=== PATIENT | male | born 2000 | race Caucasian/White ===

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

== ENCOUNTER 2024-12-12 13:12 | Emergency (ER) | payer OTHER, SELFPAY ==
--- NOTE | 2024-12-12 13:20 | ED_ITS ---
HPI - Head Injury General Chief complaint: Wound/Laceration Stated complaint: wc - head injury Time Seen by Provider: 12/12/24 13:35 Source: patient Mode of arrival: ambulatory Limitations: no limitations History of Present Illness HPI Narrative: Titi is a 24-year-old male patient presenting to the clinic today with complaints of head laceration. He reports that he was mowing the lawn and a tree limb hit him in the top of the head. Has a 2 cm laceration with bleeding controlled to the right parietal lobe. Denies loss of consciousness or any neck pain. Last Tetanus shot is unknown. Related Data Home Medications ?Medication ?Instructions ?Recorded ?Confirmed ?Last Taken ?Type No Home Medications 12/12/24 Unknown H istory Allergies Allergy/AdvReac Type Severity Reaction Status Date / Time No Known Allergies Allergy Verified 12/12/24 13:37 Review of Systems Review of Systems: Pertinent positives per HPI. Patient denies any fever, chills, rash, headache, visual changes, dizziness, cough, runny nose, sore throat, shortness of breath, chest pain, palpitations, nausea, vomiting, diarrhea, constipation, abdominal pain, or any urinary issues. [facility] Social History Social History Smoking status: Never smoker Alcohol intake: never Substance use: never Living arrangements: with family Occupation/Education: occupation Gender identity (if verbalized by the patient): Male Comments At the time of my signature, I reviewed and agree with the nursing past medical, surgical, social, and family history. There is no relevant family history pertinent to the patient complaint. Exam Narrative: General: Well-developed, well nourished, in no apparent distress Head: Normocephalic, 2 cm laceration to the right parietal lobe Cardio: Regular rate and rhythm, s1 and s2 normal, no murmur appreciated. Resp: Clear to auscultation bilaterally, no rhonchi, rales, wheezing or rubs. Integumentary: Joice, warm, and dry, intact without lesion, no rashes. Course Course Emergency Course: Portions of this record may have been created with voice recognition software. Level of Care: Express Care Visit Vital Signs Vital signs: Vital Signs Temperature 36.5 C 12/12/24 13:27 Pulse Rate 73 12/12/24 13:27 Respiratory Rate 20 12/12/24 13:27 Blood Pressure 160/86 H 12/12/24 13:27 Pulse Oximetry 99 12/12/24 13:27 Oxygen Delivery Room Air 12/12/24 13:27 Temperature 36.5 C 12/12/24 13:27 Pulse Rate 73 12/12/24 13:27 Respiratory Rate 20 12/12/24 13:27 Blood Pressure 160/86 H 12/12/24 13:27 Pulse Oximetry 99 12/12/24 13:27 Oxygen Delivery Room Air 12/12/24 13:27 Vital signs reviewed Procedures Laceration Laceration 1: Date: 12/12/24 Site: scalp Side (If applicable): right Size (cm): 2 Description: linear Depth: simple, single layer Pre-repair: wound explored and irrigated ====== Skin Level ====== Skin layer closed with: laurie Number of sutures: 3 ====== Subcutaneous Layer ====== ====== Muscle Layer ====== ====== Tendon Layer ====== Dressing: Verbal consent obtained for laceration repair. Risk and benefits explained and patient voiced understanding. Area was cleansed with antiseptic wound wash and (3) laurie were placed- bringing the wound edges together- well approximated. Patient tolerated procedure well. Triple antibiotic ointment applied MDM - Head Injury MDM Narrative Medical decision making narrative: At the time of visit patient is resting comfortably on the exam table. Patient appears to be nontoxic. Complaints of head laceration. He reports that he was mowing the lawn and a tree limb hit him in the top of the head. Has a 2 cm laceration with bleeding controlled to the right parietal lobe. Denies loss of consciousness or any neck pain. Last Tetanus shot is unknown. Tetanus shot was ordered. Medications: Tdap 0.5 mL IM given in the clinic today. Procedure: Laceration repair was performed: Area was cleansed with antiseptic wound wash and Betadine. 3 laurie were placed bringing wound edges well approximate. Patient tolerated well. Plan: Patient has a 2 cm scalp laceration to the right parietal lobe. Three laurie were placed bringing wound edges well approximate. Patient tolerated well. Tdap was given. Laurie out in 5 days. Supportive measures were discussed with the patient and they voiced understanding discharge instructions and agrees to treatment plan. Return precautions reviewed Differential Diagnosis Differential diagnosis: Likely closed head injury and other (Head laceration) Discharge Plan Discharge Clinical Impression: Laceration of scalp Qualifiers: Encounter type: initial encounter Qualified Code(s): S01.01XA - Laceration without foreign body of scalp, initial encounter Patient Disposition: Home Condition: Stable Instructions: Antibiotic Form, Head Laceration (ED) Additional Instructions: Wash wound daily with soap and water and pat dry Do not scrub the area Keep wound clean and dry If head laceration- laurie out in 5 days. Watch for signs and symptoms of infection- redness, streaking, swelling, purulent discharge, or increase in pain. Follow up with your PCP for suture removal or return to the Express care. Patient Language: Romansh Prescriptions: No Action No Home Medications Follow-up/Referrals: PHYSICIAN NOT ON STAFF,NONSTAFF [Primary Care Provider] Time of Disposition: 13:44 Quality NIHSS Nursing Documentation ED NIHSS nursing documentation: reviewed/agree
--- OUTSIDE RECORDS SUMMARY | 2024-12-12 13:24 | XMS_ITS | Clinical Summary ---
Author Organization [facility] Address [address] [place], [place] [address] [address] Care Team Providers Care Erp Programmer Name Role Phone Unavailable Primary Care Provider Unavailabl e Social History Tobacco Use Types Packs/Day Years Used Date Smoking Tobacco: Never Assessed Sex and Gender Information Value Date Recorded Sex Assigned at Not on file Legal Sex Male 9:32 AM CDT Gender Identity Not on file Sexual Orientation Not on file Plan of Treatment Health Maintenance Due Date Last Done Comments HPV VACCINES (1 - Male 3-dose series) 2016 DTAP/TDAP/TD VACCINES (1 - Tdap) 2020 HEPATITIS B VACCINES (1 of 3 - 19+ 3-dose series) 04/12 INFLUENZA VACCINE (#1) 2024 Insurance [facility] BLUE ACCESS CHOICE
--- OUTSIDE RECORDS SUMMARY | 2024-12-12 13:24 | XMS_ITS | Clinical Summary ---
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 Gender Identity Not on file Sexual Orientation Not on file Plan of Treatment Health Maintenance Due Date Last Done Comments Hepatitis C Virus (HCV) Screening 2001 Meningococcal B Immunization (1 of 2 - Standard) 2017 SARS-COV-2 Immunization ( season) 2023 Influenza Immunization (#1) 12/11/202403/13, 03/27/2014, 03/24/2007 Respiratory Syncytial Virus (RSV) Immunization (Adult) (1 - 1-dose 75+ series) 2076 Pneumococcal Immunization Combined Completed 12/08/2002, 05/19/2002, 2001, Additional history exists Measles Mumps Rubella (MMR) Immunization Discontinued 05/04/2006, 05/19/2002 Polio (IPV) Immunization Discontinued 007, 2001, 2001, Additional history exists Varicella Immunization Discontinued 05/04/2006, 2002 Hepatitis A Immunization Discontinued 03/24/2007, 04/13 Hepatitis B Immunization Completed 012, 2001, 2001, Additional history exists DTaP/Tdap/Td Immunization Discontinued 2012, 05/04/2006, 12/08/2002, Additional history exists TdaP Immunization Completed 08/23/2012 Human Papillomavirus (HPV) Immunization Completed 11/27/2015, 10/26/2014, 08/03/2014 Meningococcal Immunization (ACWY) Completed 09/14/2017, 08/03/2014 Rotavirus Immunization Aged Out No lo nger eligible based on patient's age to complete this topic
--- OUTSIDE RECORDS SUMMARY | 2024-12-12 13:24 | XMS_ITS | Clinical Summary ---
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 Gender Identity Not on file Sexual Orientation Not on file Obstetrics History Last Filed Vital Signs Vital Sign Reading Time Taken Comments Blood Pressure 134/70 08/02/2023 8:45 AM CDT Pulse 86 08/02/2023 8:45 AM CDT Temperature 37.1 C (98.8 F) 08/02/2023 8:45 AM CDT Respiratory Rate 20 08/02/2023 8:45 AM CDT Oxygen Saturation 96% 08/02/2023 8:45 AM CDT Inhaled Oxygen Concentration - - Weight 116.1 kg (256 lb) 08/02/2023 8:45 AM CDT Height 182.9 cm (6') 08/02/2023 8:45 AM CDT Body Mass Index 34.72 08/02/2023 8:45 AM CDT Plan of Treatment Health Maintenance Due Date Last Done Comments Depression Screening 2001 Hepatitis C Screening 2001 Meningococcal B Vaccine (1 o f 2 - Standard) 2017 Regular Well Visit/Exam 18-64 2019 DTaP/Tdap/Td Vaccine (7 - Td or Tdap) 08/23/2022 08/23/2012, 05/04/2006, 12/08/2002, Additional history exists Covid-19 Vaccine (2023-2 5 season) 2023 03/24/2021, 08/06/2020, 07/12/2020 Influenza Vaccine (#1) 2024 9, 03/27/2014, 03/24/2007 Pneumococcal vaccine <65 Completed 003, 05/19/2002, 2001, Additional history exists Varicella Vaccines Completed 05/04/2006, 05/19/2002 Hepatitis B Screening Completed 11/24/2011 , 2001, 2001, Additional history exists HPV Vaccines Completed 11/27/2015, 10/10, 08/03/2014 Insurance [facility] FEDERAL Member Subscriber Plan / Payer (Ef fective 2006-Present) Name:Brandon Anderson Relation to Subscriber:Child Name:LOWELL ANDERSON JR Date of :1972 Address: [address] [place] [phone] Payer ID:[id number] (NAIC) Group ID:[id number] Type:[facility] Address: [facility] [id number] [place] [id number] Care Teams Semiconductor Wafers Marker Relationship Specialty Start Date End Date Bruno Eng MD PCP - General Family Medicine 07/25/23
[2024-12-12 13:27] VITALS: BP 160/86; PULSE 73; RESP 20; TEMP 36.5; O2SAT 99
[2024-12-12] MEDS: TETANUS,DIPHTHERIA,AC PERTUSSIS ADULT (0.5 ML) BOOSTRIX IM (13:57)
== END 2024-12-12 14:13 | disposition home or self-care (01) ==
PROVIDERS: Emergency Provider Nurse Practitioner Family
DX: S01.01XA Laceration without foreign body of scalp, initial encounter (principal); Z23 Encounter for immunization; W22.8XXA Striking against or struck by other objects, initial encounter
CPT/HCPCS: 12001; 90471; 90715; 99212; G0463

== ENCOUNTER 2024-12-17 08:40 | Emergency (ER) | payer OTHER, SELFPAY ==
--- OUTSIDE RECORDS SUMMARY | 2024-12-17 08:42 | XMS_ITS | Clinical Summary ---
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 FEDERAL Member Subscriber Plan / Payer (Ef fective 2006-Present) Name:Brandon Anderson Relation to Subscriber:Child Name:LOWELL ANDERSON JR Date of :1972 Address: [address] [place] [id number] Payer ID:[id number] (NAIC) Group ID:[id number] Type:[facility] Address: [facility] [id number] [place] [id number] Care Teams Orthopaedic Physician Assistant Relationship Specialty Start Date End Date Bruno Eng MD PCP - General Family Medicine 07/25/23
--- OUTSIDE RECORDS SUMMARY | 2024-12-17 08:42 | XMS_ITS | Clinical Summary ---
Author Organization [facility] Address [address] [place], [place] [address] [address] Care Team Providers Care Beater Room Helper Name Role Phone Unavailable Primary Care Provider [...] series) 04/12 INFLUENZA VACCINE (#1) 2024 Insurance [facility] BLUE ACCESS CHOICE
--- OUTSIDE RECORDS SUMMARY | 2024-12-17 08:42 | XMS_ITS | Clinical Summary ---
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
[2024-12-17 08:46] VITALS: BP 151/71; PULSE 70; RESP 20; TEMP 36.9; O2SAT 99
--- NOTE | 2024-12-17 09:16 | ED_ITS ---
HPI - Wound/Laceration General Chief Complaint: Wound/Laceration Stated Complaint: removal of laurie Time Seen by Provider: 12/17/24 08:45 Source: patient and RN notes reviewed Mode of arrival: ambulatory Limitations: no limitations History of Present Illness HPI narrative: 24-year-old male here for stable removals. Patient's laurie placed 5 days ago was told that removed in 5 days. Patient denies any signs of infection. Related Data Home Medications ?Medication ?Instructions ?Recorded ?Confirmed ?Last Taken ?Type No Home Medications 12/12/24 Unknown H istory Allergies Allergy/AdvReac Type Severity Reaction Status Date / Time No Known Allergies Allergy Verified 12/17/24 08:49 Review of Systems Review of Systems: CONSTITUTIONAL: Denies fever, chills, or sweats. EYES: Denies visual changes, redness, or discharge. ENT: Denies rhinorrhea, congestion, sore throat, or otalgia. CARDIOVASCULAR: Denies chest pain, palpitations, or edema. RESPIRATORY: Denies cough or dyspnea. GASTROINTESTINAL: Denies abdominal pain, nausea, vomiting, or diarrhea. GENITOURINARY: Denies dysuria or hematuria. SKIN: Denies rash or itching. Positive for wound MUSCULOSKELETAL: Denies back pain, joint pain, or myalgia. NEUROLOGIC: Denies headache, numbness, or weakness. PSYCHIATRIC: Denies anxiety or depression. All other systems reviewed are negative, except as documented in HPI. [facility] Social History Social History Smoking status: Never smoker Alcohol intake: never Substance use: never Living arrangements: with family Occupation/Education: occupation Gender identity (if verbalized by the patient): Male Comments At the time of my signature, I reviewed and agree with the nursing past medical, surgical, social, and family history. There is no relevant family history pertinent to the patient complaint. Exam Narrative: GENERAL: This is a well-nourished, well-developed adult, in no apparent distress. They are non ill-appearing, nontoxic appearing. HEAD: normocephalic, atraumatic. EYES: Sclera clear/white. Conjunctiva normal. Vision is grossly intact. Extraocular movements intact EARS: External ears normal, Hearing grossly intact. NOSE: External nose normal THROAT: Mucous membranes moist, NECK: Neck supple, CARDIOVASCULAR: Regular rate and rhythm RESPIRATORY: Respiratory rate normal, respiratory effort nonlabored, no respiratory distress SKIN: Laceration present to the right parietal scalp. [place] present. No swelling, redness, pain, drainage. Wound is well-approximated. NEURO: awake, alert, and oriented to person, place and time. There were no obvious focal neurologic abnormalities. EXTREMITIES: No joint tenderness, effusion, or edema noted. Course Course Emergency Course: Portions of this record may have been created with voice recognition software Level of Care: Express Care Visit Vital Signs Vital signs: Vital Signs Temperature 98.4 F 12/17/24 08:46 Pulse Rate 70 12/17/24 08:46 Respiratory Rate 20 12/17/24 08:46 Blood Pressure 151/71 H 12/17/24 08:46 Pulse Oximetry 99 12/17/24 08:46 Oxygen Delivery Room Air 12/17/24 08:46 Temperature 98.4 F 12/17/24 08:46 Pulse Rate 70 12/17/24 08:46 Respiratory Rate 20 12/17/24 08:46 Blood Pressure 151/71 H 12/17/24 08:46 Pulse Oximetry 99 12/17/24 08:46 Oxygen Delivery Room Air 12/17/24 08:46 Reviewed MDM - Wound/Laceration MDM Narrative Medical decision making narrative: Successful stable removal the patient scalp. Wound is well-approximated but not closed. Offered patient ring insertion of laurie to allow for better approximation he declined. Advised patient look for signs of infection and to avoid dirty water until the wound is closed completely. Discussed physical exam findings. Advised supportive measures and signs/symptoms to go to the ER. Pt is appropriate for outpt treatment and f/u. Differential Diagnosis Differential diagnosis: Likely laceration, abrasion, avulsion of skin and other (Cellulitis) Critical Care Time Critical Care Time Critical Care Time: No Discharge Plan Discharge Clinical Impression: Removal of laurie Patient Disposition: Home Condition: Stable Instructions: Staple Care (ED) Additional Instructions: Continue wash your hair daily with mild soap and water, do not soak or scrub the wound. Follow-up PCP in 3-5 days. Continue look for signs of infection such as increased redness, swelling, drainage, pain, fevers, if this does occur please go to the ER immediately. Patient Language: Mohawk Prescriptions: No Action No Home Medications Follow-up/Referrals: PHYSICIAN NOT ON STAFF,NONSTAFF [Primary Care Provider] Time of Disposition: 09:06
== END 2024-12-17 09:09 | disposition home or self-care (01) ==
DX: S01.01XD Laceration without foreign body of scalp, subsequent encounter (principal); X58.XXXD Exposure to other specified factors, subsequent encounter
CPT/HCPCS: 99211; G0463